=== PATIENT | male | born 1940 | race Caucasian/White ===

== ENCOUNTER → 2017-12-16 | Outpatient (CLI) | payer MEDICARE ==
[~2017-12-16] MED LIST: CEP500 PO; CLO75 PO; FISH OIL1 CAP PO; LEV137 PO; LIS5 PO; LOR5 PO; LOR5/325 PO; METO-259 PO; SIMV-44 PO; TERA5CAP57 PO; [UNRECOGNIZED DRUG - CODE] PO
[2017-12-16 10:30] LABS: LDL CHOLESTEROL 72 mg/dl
== END ==
LOC: LAB 09:56
PROVIDERS: ATTEND Internal Medicine Cardiovascular Disease
DX: I25.10 Atherosclerotic heart disease of native coronary artery without angina pectoris (principal); E78.00 Pure hypercholesterolemia, unspecified
CPT/HCPCS: 36415; 82040; 82247; 82310; 82374; 82435; 82465; 82565; 82947; 83718; 84075; 84132; 84155; 84295; 84450; 84460; 84478; 84520